=== PATIENT | female | born 1935 | race Caucasian/White ===

== ENCOUNTER 2020-03-16 12:59 | Inpatient (IN) | payer OTHER, MEDICARE ==
[~2020-03-16] VITALS: Ht 160 cm; Wt 64.9 kg
--- NOTE | ~2020-03-16 | EMS ---
[address] [address] EMS Patient Care Report Name: AFSHIN CERVANTES Room #: DEP EN Hicks#: [id number] Admission: 03/16/20 Attend Phys: Discharge: 03/16/20 Date of : 31 Report #: [id number] THIS REPORT FOR: //name// Report Transmitted: 03/16/2020 15:03 EMS Care Summary [facility] MED-ACT Incident [id number] @ 03/16/2020 12:30 Incident Location [address] [place] [address] Patient AFSHIN CERVANTES Female, 84 Years 1935 Patient Address [address] [place] [address] Patient History Dementia,Hypertension (HTN),Hyperlipidemia,Anxiety,Hypotension,Hypothyroidism, Patient Allergies Latex allergy,Penicillin allergy,Morphine,Erythromycin,Sulfa, Patient Medications Fentanyl, Fluticasone, Seroquel, Trazodone, Levothyroxine, Alprazolam, Celexa, Chief Complaint pain to back of head Disposition Transported No Lights/[place] [facility] Reason Falls Transported To [facility] Narrative Dispatched to a C2 fall. On arrival staff reports the following: patient was in her bedroom alone when staff heard a thump. They went in to find patient on the floor crying and bleeding from the back of her head. Staff got patient off [address] [address] EMS Patient Care Report Name: AFSHIN CERVANTES Room #: DEP [facility]#: [id number] Admission: 03/16/20 Attend Phys: Discharge: 03/16/20 Date of : 31 Report #: [id number] the [address] and put pressure on her head wound. Patient has dementia and is always confused. Her confusion is no different than normal. Patient was scheduled to go to [facility] ED this afternoon for labs then move upstairs to the psych. unit for evaluation of anxiety that has been increasing recently. Patient reports the following: she "wamped" her head and now it hurts. She cannot rate the pain. Patient found sitting in a chair with staff at her side. A open, B non labored, C s/r radial. HPI, PE, PMH, V/S. Dress head wound with 4X4 and mekhi. Assist patient to her feet where she is able to walk with her walker to the cot. Secure to the cot. Move to MICU. Transport to [facility]. Monitor V/S. Biocom to [facility]. On arrival at [facility] sheet drag procedure used to move patient to ED bed 7. Report given to ED RN. Patient condition unchanged. Initial Vitals @12:47P: 80,R: 16,BP: 118/72,SpO2: 94, @12:53P: 79,R: 16,BP: 125/70,SpO2: 94, @12:39P: 82,R: 16,BP: 118/73,GCS: 14,SpO2: 98,Revised Trauma: 12, Assessments @12:38MENTAL:Person Oriented,Event Oriented,SKIN:HEENT:Head/Face: Other,Neck/Airway: No Abnormalities,LUNG SOUNDS:General: No Abnormalities,ABDOMEN:General: No Abnormalities,PELVIS//GI:EXTREMITIES:Left Arm: No Abnormalities,Right Arm: No Abnormalities,Left Leg: No Abnormalities,Right Leg: No Abnormalities,PULSE:NEURO: Impression Injury of Head Timeline 12:28,Call Received 12:28,Psap Call 12:30,Dispatched 12:30,En Route 12:33,On Scene 12:35,At Patient 12:39,BP: 118/73 M,PULSE: 82,RR: 16 R,SPO2: 98 Ox,ETCO2: ,BG: ,PAIN: ,GCS: 14, 12:45,Depart Scene 12:47,BP: 118/72 M,PULSE: 80,RR: 16 R,SPO2: 94 Ox,ETCO2: ,BG: ,PAIN: ,GCS: , 12:53,BP: 125/70 M,PULSE: 79,RR: 16 R,SPO2: 94 Ox,ETCO2: ,BG: ,PAIN: ,GCS: , 12:55,At Destination 13:19,Call Closed [facility] [address] [place] [address] EMS Patient Care Report Name: HELENGLENNE Room #: DEP EN Hicks#: [id number] Admission: 03/16/20 Attend Phys: Discharge: 03/16/20 Date of : 31 Report #: [id number] Disclaimer v1.1 Copyright 2020 [employer] This EMS Care Summary contains data elements from the applicable legal record (which may be displayed differently). It is designed to provide pertinent information for the following purposes: continuity of care, clinical quality, and state data reporting. The complete legal record is available to ED staff and administrators of the receiving hospital in [employer] Patient Tracker. All data is provided "as is."
[~2020-03-16 12:59] MED LIST: ACCUPRIL PO; ALEVE220 MG PO; AMLODIPINE PO; ARTHROTEC 50 E1 EACH PO; ASPIRIN EC81 M1 PO; CALTRATE PLUS1 EACH PO; CENTRUM SILVER1 EAC1 PO; FISHOIL PO; GABAPENTIN PO; HCTZ PO; OMEPRAZOLE PO; PRAVASTATIN SOD40 MG PO; PREMARIN0.3 MG PO; SUMYCIN 250250 MG PO; SYNTHROID75 MCG PO; VITAMIN D-32000 UNIT PO; VOLTAREN GEL 1100 G1 TOP
[2020-03-16 13:00] VITALS: BP 121/49
[2020-03-16 13:40] LABS: ABSOLUTE NEUTROPHILS 6.3 thou/uL (1.4-8.2); BASOPHILS 0.7 % (0.0-2.0); EOSINOPHILS 4.8 % (0.0-3.0); HEMATOCRIT 37.9 % (37.0-47.0); HEMOGLOBIN 12.3 gm/dL (12.0-15.0); LYMPHOCYTES 18.8 % (24.0-44.0); MCH 30.6 pg (26.0-34.0); MCHC 32.4 g/dL (28.0-37.0); MCV 94.5 fL (80.0-100.0); MONOCYTES 9.8 % (1.0-8.0); PLATELET COUNT 275 thou/uL (150-400); POLYS 65.9 % (36.0-66.0); RBC 4.01 mil/uL (4.20-5.00); RDW 15.3 % (10.5-14.5); WBC 9.5 thou/uL (4.0-11.0)
[2020-03-16 13:42] LABS: URINE BILIRUBIN NEGATIVE (Negative); URINE BLOOD NEGATIVE (Negative); URINE CLARITY CLEAR; URINE COLOR YELLOW; URINE GLUCOSE-RANDOM* NEGATIVE (Negative); URINE KETONES TRACE (Negative); URINE LEUKOCYTES-REFLEX NEGATIVE (Negative); URINE NITRITE-REFLEX NEGATIVE (Negative); URINE PROTEIN (DIPSTICK) NEGATIVE (Negative); URINE UROBILINOGEN 0.2 E.U./dl (0.2-1.0)
[2020-03-16 13:46] LABS: CALCIUM 9.9 mg/dL (8.5-10.1); CREATININE 1.2 mg/dL (0.6-1.0); POTASSIUM 3.9 mmol/L (3.5-5.1)
[2020-03-16 13:52] LABS: ALBUMIN 3.5 g/dL (3.4-5.0); TOTAL BILIRUBIN 0.3 mg/dL (0.2-1.0); TOTAL PROTEIN 7.2 g/dL (6.4-8.2)
[2020-03-16 15:34] VITALS: BP 124/74
[2020-03-16 16:00] VITALS: BP 124/74
--- NOTE | 2020-03-16 16:00 | NUR ---
PT ARRIVED TO UNIT VIA W/C. PT ORIENTED TO SELF ONLY. PT SITTING ON SIDE OF BED AND CONVERSATION WITH NURSE. PT HAS LACERATION TO RT SIDE OF HEAD WITH JOSE CARLOS FROM FALL EARLIER TODAY. PT DENIES ANY PAIN. PT UP WALKING WITH ASSIST OF NURSE. GETTING ANXIOUS AND NOT WANTING NURSE TO HELP HER WITH WALKING. PT PLACED INTO W/C WITH LAP JANN. PT SITING HAIL JESSICA FULL OF JABIER OVER AND OVER AGAIN. PT DOES ANSWER QUESTIONS FOR ADMIT AND THEN IS GETTING INCREASED ANXIETY. CALLING DR. Brady FOR ORDERS.
--- NOTE | 2020-03-16 16:50 | EKG ---
[facility] [place] [address] [place] [address] ELECTROCARDIOGRAM REPORT Name: AFSHIN CERVANTES Room #: [facility]- ADM IN M.R.#: [id number] Admission: 03/16/20 Attend Phys: Fernandez Spears DO Discharge: Date of : 31 Report #: [id number] THIS REPORT FOR: cc: Fernando Carlos MD, Peter MD Lundgren,Leonid Osorio MD [facility] ~ THIS REPORT FOR: //name// [facility] ED Test Date: 2020-03-16 Test Time: 14:15:51 Pat Name: AFSHIN CERVANTES Department: Room: [facility] Gender: F Facing Slitter: IMAN : 1935 Requested By: Meme Gates Order Number: [id number] MD: Leonid Soriano Measurements Intervals [place] Rate: 70 P: 72 IA: 154 QRS: 47 QRSD: 89 T: 88 QT: 422 QTc: 456 Interpretive Statements Sinus rhythm Nonspecific repol abnormality, diffuse leads Compared to ECG 01/28/2006 13:05:36 No significant change was found Electronically Signed On 03-16-2020 16:49:55 CDT by Leonid Soriano [email or web address] <ELECTRONICALLY SIGNED> By: Leonid Soriano MD, [facility] 03/16/20 1649 1415 1415 Leonid Soriano MD, [facility] /EPI
--- NOTE | 2020-03-16 17:15 | NUR ---
PT RECIEVED GEODON 15MG IM X1 FOR ANXIETY. PT SITTING IN W/C WITH LAP JANN, PT ABLE TO GET OUT OF BELT WHEN WANTING.
[2020-03-16] MEDS ORDERED: CELEXA20 MG PO (17:16)
[2020-03-16] MEDS ORDERED: DEPAKOTE125 MG PO (17:19)
[2020-03-16] MEDS ORDERED: FAMOTIDINE 20 M20 MG PO (17:20)
[2020-03-16] MEDS ORDERED: SEROQUEL 50 MG50 M1 PO (17:22)
[2020-03-16] MEDS ORDERED: CVS SENNA PLUS1 EACH PO (17:23)
[2020-03-16] MEDS ORDERED: DESYREL150 MG PO (17:24)
[2020-03-16] MEDS ORDERED: VITAMIN D3125 MC2 PO (17:26)
[2020-03-16] MEDS ORDERED: DURAGESIC1 EAC2 EPIDURAL (17:28)
[2020-03-16] MEDS ORDERED: FLONASE 0.05%50 MCG NARES (17:29)
[2020-03-16] MEDS ORDERED: VOLTAREN GEL 1100 G1 TOP (17:29)
[2020-03-16] MEDS ORDERED: MIRALAX119 GM PO (17:30)
[2020-03-16] MEDS ORDERED: LIDODERM1 EACH TOP (17:30)
[2020-03-16] MEDS ORDERED: SYSTANE GEL EYE10 ML EA. EYE (17:32)
[2020-03-16] MEDS ORDERED: ALPRAZOLAM XR3 MG PO (17:33)
[2020-03-16] MEDS ORDERED: LORCET 5-325 M1 EACH PO (17:34)
[2020-03-16] MEDS ORDERED: ONDANSETRON HCL4 M2 PO (17:35)
[2020-03-16] MEDS ORDERED: MUCUS RELIEF C200 MG PO (17:37)
[2020-03-16] MEDS ORDERED: ORADENT 0.1% DEN5 GM TOP (17:38)
--- NOTE | 2020-03-16 17:50 | NUR ---
PT STILL SAYING ILA LOPEZ FULL OF JABIER, PT DID HAVE SOME CHIPS AND APPLE JUICE. PT SEEMS A LITTLE BIT CALMER.
[2020-03-16 19:49] VITALS: BP 144/95
--- NOTE | 2020-03-17 03:02 | NUR ---
ASSESSMENT: PT REPEATEDLY RECITES "BREEZYL JESSICA FULL OF JABIER". DOES STOP TO ANSWER QUESTIONS APPROPRIATELY. DOES NOT WANT MUCH HELP FROM NURSE WITH TOILETING AND GETTING IN BED. DENIES PAIN. REMAIN FALL AND INJURY FREE. VSS, AFEBRILE. DID NOT REQUIRE A SECOND DOES OF GEODON. DOES GET A LITTLE ANXIOUS BUT ABLE TO REDIRECT AND TO CALM PT WITHOUT ESCLATION. SLOW PROGRESS WILL CONTINUE TO MONITOR.
[2020-03-17 08:10] VITALS: BP 115/62
--- NOTE | 2020-03-17 08:29 | NUR ---
PT UP IN DINING ROOM THIS AM. PT HARD TO TAKE PILLS THIS AM. THIS MERCHANDISE COMPLAINT ADJUSTER PUT MED IN HER MOUTH AND SHE WOULD TAKE OUT AND DRINK WATER. PT DID HAVE MEDS CRUSHED IN OATMEAL. PT UNABLE TO TAKE CALCIUM TAB. PT TOOK A BIG BITE OF OATMEAL AND THEM TOOK SMALL BITES AFTER THE FIRST BITE. HAD TO COME BACK WITH REST OF MEDICATION IN OATMEAL FOR PT TO TAKE ANOTHER BIGGER BITE. PT WANTING TO GET UP OUT OF CHAIR, HAS LAP JANN ON. ASKED PT WHERE SHE WANTED TO GO. PT DIDN'T KNOW.
--- NOTE | 2020-03-17 11:48 | NUR ---
PT ROLLING SELF AROUND IN W/C. PT STILL SAYIN ILA LOPEZ AND SAYING JOSEFA. PT NOT YELLING AT THIS TIME.
--- NOTE | 2020-03-17 12:07 | NUR ---
PT NEEDING ASSISTANCE WITH FEEDING. PT NOT FEEDING SELF. PT ALLOWS TO BE FED. PT DIDN'T EAT VERY MUCH FOR BREAKFAST. A FEW BITES OF OATMEAL AND SCRAMBLED EGGS.
--- NOTE | 2020-03-17 19:00 | NUR ---
PT HAS BEEN HAVING A GOOD DAY TODAY. PT DOES SITE ROSERY AND SAYS JOSEFA WITHOUT THE ANXIETY.
--- NOTE | 2020-03-18 04:07 | NUR ---
PATIENT ASSESSED AND IS ALERT X2. SKIN WARM AND DRY. IS VERY ANXIOUS AT TIMES, REPEATS "ILA LOPEZ FULL OF JABIER" TAKEN ALL MEDS WELL. PLACED TO BED AND HAS BEEN SLEEPING GOOD. NO ANXIETY NOTED AFTER HS MEDS. IS IN A W/C WITH LAP JANN ON. WEARS BREIF AND IS INCONT AT TIMES. MEDS WERE CRUSHED AND PLACED IN APPLESAUSE. ALL MEDS WERE SWITCHED SO SHE HAS A EASIER TIME 9IN SWOLLOWING. BUT PATIENT DOES NOT KNOW. IS A DNR. AND A FALL RISK. NO SI/HI/AVH NOTED THIS SHIFT. ALLERIIC TO ALOT OF MEDS. CONT PLAN OF CARE. REMIANS SLEEPING.
[2020-03-18 07:00] VITALS: BP 143/73
[2020-03-18 11:23] VITALS: BP 143/73
--- NOTE | 2020-03-18 11:27 | NUR ---
ASSUMED CARE OF PT AT 0700. PT ALERT AND ORIENTED TIMES TWO. VSS, PT DENIES PAIN/SOA. ALSO DENIES SI/HI/AH/VH. PT UP IN DINNING ROOM. PT HAS VERY POOR APETITE. PT INTERACTS WITH STAFF AND PEERS BUT RAMBLES. WILLCONTINUE TO MONITOR.
[2020-03-18 20:18] VITALS: BP 108/86
[2020-03-18 21:15] VITALS: BP 108/86
--- NOTE | 2020-03-19 01:19 | NUR ---
PATIENT SAT AT DINING ROOM TABLE IN HER WC WITH CHAIR ALARM ON AND BRAKES ON WHEN I CAME ON DUTY AT 1900. SHE WAS CONVERSING WITH A MALE PATIENT TO WHOM SHE THINKS IS HER . BOTH WERE TALKING AND PLEASANTLY CONFUSED. PATIENT TOOK HER HS MEDS CRUSHED IN PUDDING AT HS. SHE DID HAVE HS SNACK. PATIENT TAKEN TO THE TOILET BEFORE BED. TYLENOL 650MG AND ZOFRAN 4MG CRUSHED IN PUDDING GIVEN AFTER PT'S ROOMMATE AWAKENED BY PATIENT TALKING NONSENSE. PATIENT BACK TO SLEEP. PATIENT IS DELUSIONAL AND SEE'S OTHERS PEOPLE IN HER PAST. SHE IS PLEASANTLY CONFUSED. SHE HAS NOT BEEN LOUD OR YELLING THIS EVENING. SHE IS ABLE TO LET US KNOW AT TIMES WHEN SHE NEEDS TO USE THE BATHROOM. BED IN LOW POSITION AND BED ALARM IS ON. CONTINUING TO MONITOR THRU ROUTINE ROUNDING TO ASSESS STATUS AND SAFETY OF PATIENT.
[2020-03-19 07:13] LABS: ALBUMIN 3.1 g/dL (3.4-5.0); CALCIUM 9.8 mg/dL (8.5-10.1); CREATININE 1.1 mg/dL (0.6-1.0); PHOSPHORUS 3.7 mg/dL (2.5-4.9); POTASSIUM 3.8 mmol/L (3.5-5.1)
[2020-03-19 08:40] VITALS: BP 121/72
[2020-03-19 08:47] VITALS: BP 121/72
--- NOTE | 2020-03-19 09:11 | NUR ---
PT FINISHED BREAKFAST AND JOINING GROUP. PT IN W/C, PT X1 ASSIST WITH BATHROOM. PT PLEASANT THIS AM. PT TAKES MEDS CRUSHED IN YOGART OR PUDDING. PT TOOK MEDS FOR THIS STEEL TESTER BETTER, OPENEND MOUTH FOR MEDS. PT ORIENTED TO SELF. PT CAN WALK, GETS TIRED EASILY AND STAGGERS.
--- NOTE | 2020-03-19 13:25 | NUR ---
ABDI recieved a phone call from Dionne Joyner, , who is Pt's DPOA. SW provided the phone number of the ongoing ABDI Boone to Ms. Joyner. ABDI gave an update on the Pt. Ms. Joyner did not have any further questions or concerns at this time.
--- NOTE | 2020-03-19 13:26 | NUR ---
ABDI spoke with Kiana Villalta, , concerning the Pt. Sw provided Kiana with the ongoing SW, Kya Boone, contact information. Sw provided Kiana with and update on the Pt.
--- NOTE | 2020-03-19 14:39 | NUR ---
PT IN W/C PROPELLNG SELF AROUND, PT CALLING FOR JOSEFA AND TAWANA. PT WANTING TO CUT PART OF HER GOWN OFF.
--- NOTE | 2020-03-19 14:46 | NUR ---
ABDI spoke with Kiana and received her fax number of [phone]. ABDI team will continue to follow pt during her stay on this unit.
[2020-03-19 19:38] VITALS: BP 150/60
[2020-03-19 21:10] VITALS: BP 150/60
--- NOTE | 2020-03-20 02:16 | NUR ---
PATIENT HAS BEEN MORE ACTIVE TONIGHT. SHE HAS BEEN ENERGETIC AND WHEELING HERSELF AROUND THE UNIT IN HER WC AND ENTERING SOME PT ROOMS AT TIMES. SHE CONTINUES TO BE CONFUSED AND DELUSIONAL. SHE KEEPS ASKING ABOUT "JOSEFA" HER AND SHE TALKS ABOUT HIM. SHE SOMETIMES SPEAKS TO ANOTHER MALE PATIENT IF HE IS JOSEFA. PATIENT WAS TAKING OFF HER GOWN AT ONE TIME IN THE DINING ROOM. 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 PATIENT HAD HS SNACK. SHE TOOK HER MEDS CRUSHED IN PUDDING. PT WAS GIVEN TYLENOL 650MG PO AT HS TO HELP HER REST AND CALM ANY GENERALIZED ACHES OR PAINS. PATIENT A/0 X 1. SHE IS EASILY REDIRECTED AND VERY PLEASANT AND SMILING ALOT. SEROQUEL WAS INCREASED TO 100MG. PATIENT IS ABLE TO ASSIST WITH TRANSFERS FROM TO BED. BED IN LOW POSITION AND BED ALARM IS ON. WILL CONTINUE TO MONITOR.
[2020-03-20 07:10] VITALS: BP 100/52
[2020-03-20 08:00] VITALS: BP 100/52
--- NOTE | 2020-03-20 08:17 | NUR ---
PT TOOK MEDS THIS AM CRUSHED, PT CONFUSED AND ORIENTED TO SELF. PT LOOKING FOR JOSEFA OR TAWANA. PT ABLE TO BEAR WT ON FEET AND WALK A FEW FEET, THEN GETS TIRED AND NEEDS TO SIT. PT NEEDS ASSITANCE WITH FEEDING ALSO.
--- NOTE | 2020-03-20 17:23 | NUR ---
PT SEEMS MORE CONFUSED SINCE SEROQUEL ADM IN AFTERNOON. PT PULLING AT CLOTHES AND VERY ANXIOUS WANTING TO GET OUT OF HERE. PT SITEING ILA LOPEZ FULL OF JABIER. PT TAKEN TO BATHROOM. PT SEEMS A LITTLE MORE RELAXED. PT COMPLAINING OF FEELING COLD. PT DIDN'T WANT TO EAT DINNER.
[2020-03-20 18:50] VITALS: BP 128/70
--- NOTE | 2020-03-20 23:46 | NUR ---
Assumed pt's care this pm shift. Pt was in the dayroom om w/c at time of assessment. Alert and oriented to self. Forgetful. Confused. Pt was calm and pleasant with assessment. Denies SI/HI, anxiety and/or depression. Pt took meds crushed in pudding, except for enteric coated aspirin given whole. Pt currently in bed sleeping. Fall precaution in place. Will continue to monitor.
[2020-03-21 07:25] VITALS: BP 132/75
--- NOTE | 2020-03-21 11:54 | NUR ---
RESTLESS THIS AM ATTEMPTING TO GET UP ON OWN,YELLING OUT HELP HELP OR SAYING THE HAIL JESSICA LOUDLY IN DAYROOM. WILL CALM WITH SUPPORT,REASSURANCE FROM NURSING STAFF BUT IMMEDIATLY BEGINS TO YELL OUT AGAIN WHEN STAFF WALKS AWAY. ORIENTED TO NAME ONLY. REQUIRES ASSIST WITH ALL ADLS.
--- NOTE | 2020-03-21 14:26 | NUR ---
ANXIOUS -TEARFUL STATING "I'M SO SCARED-I'M SO NERVOUS" "PLEASE TAKE ME AWAY-PLEASE TAKE ME AWAY" SPEECH LOUD-CONVERSATION RAMBLING /FRAGMENTED-WITH NOTED EXPRESSIVE APHASIA"PLEASE DON'T MAKE ME GO TO THE [employer]" TYLENOL 650MG PO PRN FOR REPORTED BACK PAIN-WILL CONTINUE TO MONITOR
[2020-03-21 19:28] VITALS: BP 143/64
[2020-03-21 21:37] VITALS: BP 143/64
--- NOTE | 2020-03-21 22:53 | NUR ---
PATIENT WAS SITTING IN A RECLINER OUTSIDE NURSE STATION, HOLLERING OUT AND TRYING TO GET OUT OF HER CHAIR WHEN THIS NURSE CAME ON AT 1900. WAS TOLD IN REPORT SHE WAS GIVEN HALDOL AND ATIVAN AT 1730 A ONETIME ORDER. SPOKE WITH PATIENT ON ASSESSMENT AND SHE STATES HER BACK AND NECK ARE HURTING. TYLENOL 650MG WAS GIVEN WITH HER HS MEDS AT 1999. MEDS WERE CRUSHED IN PUDDING AND PATIENT ATE ALL THE PUDDING. PATIENT WAS ASSISTED TO THE BATHROOM AND CLEANED AND INTO BED. PATIENT HAS BEEN SLEEPING SOUNDLY SINCE 2029. NO SI/HI. PATIENT DOES CALL OUT FOR TAWANA AND JOSEFA AT TIMES AND TALKS TO OTHERS IF THAT IS THEM. ROUTINE ROUNDING TO ASSESS SAFETY AND STATUS OF PATIENT. BED IN LOW POSITION AND BED ALARM IS ON.
--- NOTE | 2020-03-22 05:39 | NUR ---
PATIENT HAS SLEPT ALL NIGHT. PATIENT WITH EVEN AND UNLABORED RESPIRATIONS. BED ALARM IS ON AND BED IN LOW POSITION. CONTINUING TO MONITOR.
[2020-03-22 08:53] VITALS: BP 135/67
--- NOTE | 2020-03-22 11:52 | NUR ---
PT CARE ASSUMED AT 0700. A&Ox1. PT SITTING UP IN THE RECLINER IN THE DAY ROOM BECOMING RESTLESS AND CONTINUING TO PRAY THE HAIL JESSICA. PT STATED HER HIP WERE HURTING HER, TREATED WITH TYLENOL, WITH PAIN REDUCED TO A 2 FROM A 5. VITALS STABLE. DR. CHILEL HAS REDUCED SEROQUIL FROM 100MG TO 75MG. DR. CHILEL ALSO WISHES TO HAVE THE LAP JANN REMOVED AND SWITCHED OVER TO A CHAIR ALARM. ORDER COMPLEETED. FALL PROTOCOL IN PLACE. CALL LIGHT IN PLACE. WILL CONTINUE TO MONITOR.
--- NOTE | 2020-03-22 13:40 | NUR ---
ABDI faxed updates for pt to Traci P[facility]. ABDI team will continue to follow pt during her stay on this unit.
--- NOTE | 2020-03-22 15:17 | NUR ---
RT Progress Note- Samantha's ability to maintain focus has hindered her participation in recreation groups. She easily loses attention to task and begins looking for "Edgardo" her . She can be difficult to redirect back to task but is allowed to wander out of group when needed and can return for a short time. She has participated well in some exercise groups and enjoys when music is played. She also participated well in 1;1 ball toss which allowed for her to tire enough for a nap.
[2020-03-22 19:31] VITALS: BP 163/90
--- NOTE | 2020-03-23 05:29 | NUR ---
Assumed care of pt @ 1900. Pt calm et cooperative most of shift but became agitated later in the shift. Pt was given Geodon 10mg IM for agitation in very early am. Took medications crushed in pudding without difficulty at HS. Ambulates the halls with slightly unsteady gait. VSWNL. Health assessment with no abnormalities noted at present time. Unable to assess SI/HI due to cognitive deficit but pt does not demonstrate any signs or symptoms of emotional distress at present time. Currently resting in annamarie-chair in dayroom with eyes closed. Will continue to monitor per protocol.
--- NOTE | 2020-03-23 15:03 | NUR ---
PATIENT CARE ASSUMED AT 0700 - SLEEPING IN JERILYN CHAIR IN DINING LEE. PATIENT SEDATED FROM IM PREVIOUS NIGHT GIVEN OF GEOKASSI. STAFF ABLE TO AROUSE FOR BREAKFAST - MEDICATIONS DISPENSED CRUSHED IN APPLESAUCE - TOLERATED WELL. PATIENT EXTREMELY CONFUSED - TALKING TO UNSEEN PEOPLE- IN CONSTANT MOVEMENT. DIFFICULT TO REDIRECT. AMBULATED WITH PT FOR SHORT TIME. CONSTANTLY DISASSEMBLING LAP JANN PLACE ON HER TO PREVENT FALLING. CONVERSATION IRRATIONAL - THOUGHT PROCESSES SCRAMBLED. TALKING NON STOP - CALLING OUT FOR PEOPLE SHE IS ACQUAINTED WITH FROM HER PAST. VERY RESTLESS - APPETITE POOR NEEDS ENCOURAGEMENT TO EAT AND COMPLETE HER MEALS. HAD TO BE FED.
[2020-03-23 19:09] VITALS: BP 113/66
[2020-03-23 19:12] VITALS: BP 143/84
--- NOTE | 2020-03-24 05:05 | NUR ---
Assumed care of pt @ 1900. Pt calm et cooperative at beginning of shift et then proceeded her fixation on "mariusz Paz, mother of God" repetitive vocalization. Pt started to become increasingly agitated. Physician consumer credit counselor was notified et ordered Geodon 10mg IM X1. This was administered to L deltoid without difficulty. No signs or symptoms of adverse reaction were noted after 15 minute monitoring. Medication was effective after a length of time. Took medications crushed in pudding without difficulty. Ambulates with assistance of w/c. ELENAKATJA. Health assessment with no abnormalities noted at present time. Unable to assess SI/HI due to cognitive deficits but pt does not demonstrate any signs or symptoms of emotional distess at present time. Currently resting in bed with eyes closed. Will continue to monitor per protocol.
[2020-03-24 07:22] VITALS: BP 153/86
--- NOTE | 2020-03-24 14:07 | NUR ---
PATIENT CARE ASSUMED AT 0700. PATIENT HAS BEEN IN JERILYN CHAIR IN DINING LEE. ALERT TO SELF ONLY. RESTLESS - MEDICATIONS GIVEN CRUSHED IN APLESAUCE AND TOLERATED WELL. PATIENT POOR EATER AND DRINKER - INTAKE OF BOTH LIMITED - THOUGH STAFF ALWAYS ENCOURAGING FLUIDS - PATIENT SLEPT MOST OF DAY - STAFF HAD UP WALKING WITH GAIT BELT TO EASE RESTLESSNESS. PATIENT HAD BOWEL MOVEMENT WHEN TAKEN TO BATHROOM. NO AGGRESSION OR AGITATION NOTED.
[2020-03-24 16:11] LABS: CALCIUM 9.9 mg/dL (8.5-10.1); CREATININE 0.9 mg/dL (0.6-1.0); POTASSIUM 3.7 mmol/L (3.5-5.1)
[2020-03-24 19:45] VITALS: BP 151/81
--- NOTE | 2020-03-25 03:46 | NUR ---
Assumed care of pt @ 1900. Pt calm et cooperative most of the shift. Took medications crushed in sweetened applesauce without difficulty et ate the whole container of applesauce. Ambulates with assistance of annamarie-chair. VSWNL. Health assessment with no abnormalities noted at present time. Unable to assess SI/HI due to cognitive deficit but does not demonstrate any signs or symptoms of emotional distress at present time. Pt had small episode of acceleration in agitation, but was able to calm down. Currently resting in bed with eyes closed. Will continue to monitor per protocol.
[2020-03-25 07:29] VITALS: BP 128/60
--- NOTE | 2020-03-25 10:12 | NUR ---
Assumed care of patient at 0700. Up in chair in day room. Pleasant, happily confused. Took all of medication crushed in applesauce. Denies any complaints. Verbose. Abdomen soft, bowel sounds present. Difficult to fully assess lung sounds. No cough. vital signs WNL. No resistive behavior or agitation noted. Cooperative with care. Bruise observed left arm. Napping intermittently.
--- NOTE | 2020-03-25 10:31 | NUR ---
[facility]
--- NOTE | 2020-03-25 13:07 | NUR ---
SHOWER GIVEN, HAIR WASHED, BED LINEN CHANGED. PT. COOPERATIVE WITH THE PROCESS.
[2020-03-25 19:13] VITALS: BP 149/79
--- NOTE | 2020-03-26 02:18 | NUR ---
ASSUMED CRAE OF PT , PT VERY PLEASANT AND ANSWERING [place]ST[place] WITHOUT DIFF. APPEARS WELL GROOMED, STATES SHE BETTER TODAY THAN SHE HAD IN LONG WHILE. PT STATES SHE IS READY TO GO HOME SOON. MEDICARION TAKEN THEN PT SLEEP FOR 2 HOURS AND WAS AWAKE IN DAYROOM DUE TO ROOMAMTE SNORING. WILL TO MOVE PT OR WAIT UNTIL AM AND GET SLEEPING PILL FRO THE FLOOLOWING NIGHT.
[2020-03-26 07:13] VITALS: BP 152/79
--- NOTE | 2020-03-26 17:14 | NUR ---
ASSUMED PATIENT CARE AT 0700. ALERT CONFUSED. VERY CALM. SLOWLY TOWARDS POC GOALS.
[2020-03-26 19:57] VITALS: BP 141/66
[2020-03-26 21:00] VITALS: BP 141/66
--- NOTE | 2020-03-27 00:33 | NUR ---
PATIENT SAT UP IN RECLINER IN DAYROOM. PATIENT IS A/0X1. SHE TALKS TO OTHER MALE PATIENTS THINKING THEY ARE HER , JOSEFA. PATIENT IS A FALL RISK AND SAT IN A LOCKED RECLINER ON A CHAIR ALARM. PATIENT TOOK HER HS MEDS CRUSHED IN PUDDING. PATIENT DENIES PAIN TONIGHT BUT STATES SHE IS TIRED. PATIENT IN BED AT THIS TIME. BED IN LOW POSITION AND BED ALARM IS ON. SIDERAILS UP X 3 FOR SAFETY. PATIENT HAS BEEN CALM AND SMILING TONIGHT. NO SIGNS OF SI/HI/AVH. JUST DELUSIONAL. ROUTINE ROUNDING TO ASSESS SAFETY AND STATUS OF PATIENT.
[2020-03-27 07:28] VITALS: BP 150/75
--- NOTE | 2020-03-27 08:26 | NUR ---
PT SITTING IN DINING ROOM THIS AM IN KULWANT CHAIR. PT DENIES ANY PAIN. PT LE CAN BECOME EDEMATOUS WITH LEGS DEPENDANT, FOOT REST RAISED FOR COMFORT. PT VERY POLITE AND ACCEPTANCE OF FOOD. PT DOESN'T EAT VERY MUCH. NEED TO ENCOURAGE FLUIDS AND FOOD. PT SAYS ILA LOPEZ FULL OF JABIER AT TIMES, NOT YELLING. PT NEEDS ASSITANCE WITH WALKING DUE TO GET TIRED FAST. PT ABLE TO WALK AROUND NURSES DESK, THEN GETS TIRED. PT SOCIAL WITH STAFF.
--- NOTE | 2020-03-27 08:26 | NUR ---
PT SITTING IN DINING ROOM WATCHING TV. PT TOOK MEDS WITHOUT ANY ISSUES. PT DID DROP A PILL AND WANTED TO TAKE IT, 5 SEC RULE, I DECLINED AND GOT ANOTHER PILL FOR HER. PT SOCIAL AND NOT ASKING ABOUT GOING HOME OR WANTING TO LEAVE. PT LUNGS CLEAR. PT UP AD CESIA.
[2020-03-27 08:30] VITALS: BP 150/75
--- NOTE | 2020-03-27 12:17 | NUR ---
PRN ABDI left a msg for this SW that pt is ready for d/c on Thu. ABDI confirmed this with Dr. Spears. ABDI contacted Kiana who agreed to a 1300 d/c time on 03/28 via [employer]. ABDI contacted [employer] and arranged transportation for 03/28 1pm. Trip # [id number]. SW team will continue to follow pt during her stay on this unit.
--- NOTE | 2020-03-27 17:22 | NUR ---
PT HAS HAD A GOOD DAY. PT NEEDS TO BE FEED WITH MEALS AND ENCOURAGED TO DRINK. WHEN PT STATED SHE NEEDS TO GO TO BATHROOM, PT IS WALKED WITH X1-2 ASSIST TO BATHROOM. PT TOLERATES ACTIVITY WELL.
--- NOTE | 2020-03-27 18:30 | NUR ---
PT STATED SHE WAS HAVING SOME PAIN. PT RECIEVED TYLENOL 325MG 2 TABS PO FOR PAIN.
[2020-03-27 19:34] VITALS: BP 113/55
[2020-03-27 21:00] VITALS: BP 113/55
--- NOTE | 2020-03-27 23:13 | NUR ---
PATIENT SAT UP IN A RECLINER AT A TABLE AND HAS BEEN VERY TALKATIVE ALL NIGHT. SHE HAS SQUIRMED IN HER RECLINER TO TRY AND GET OUT OF HER LAPBUDDY. REPOSITIONED PATIENT AND FINALLY REMOVED LAP JANN AND PATIENT STAYED IN CHAIR BUT KEPT SLIDING HERSELF DOWN. SHE HAS DENIED PAIN TONIGHT. THE NEW FEMALE PATIENT DID SIT AND LISTEN TO PATIENT TALK ALL NIGHT AND THEY CONVERSED AT TIMES. PATIENT WAS TRYING TO CALL OUT TO HER FRIEND TAWANA AT TIMES AND LOOKING FOR HER. PATIENT TOOK HER HS MEDS CRUSHED IN PUDDING. SHE HAD ICECREAM FOR HS SNACK. SHE DOES NOT APPEAR TO SI/HI BUT IS DELUSIONAL. SHE HAS BEEN HAPPY AND ALMOST MANIC THE EVENING PROGRESSED. HOWEVER, SHE DID CALM DOWN ONCE TAKEN TO HER ROOM AND TOILETED AND PUT TO BED. SHE IS SLEEPING AT THIS TIME. BED IS IN LOW POSITION AND BED ALARM IS ON. WHEN UP PATIENT HAS BEEN IN A LOCKED RECLINER SITTING ON A CHAIR ALARM AND LAPBUDDY FASTENED IN THE FRONT PRN. PT HAS BEEN COOPERATIVE AND REDIRECTABLE. VERY SHORT ATTENTION SPAN. FLIGHT OF IDEAS. ROUTINE ROUNDING TO ASSESS SAFETY AND STATUS OF PATIENT.
[2020-03-28 07:29] VITALS: BP 142/80
--- NOTE | 2020-03-28 10:22 | NUR ---
Assumed care of patient at 0700. Up in gerichair in dayroom with lapbuddy. pleasantly confused. Cooperative. Talks constantly, gibberish, asking if she can go under the floor. Bowel sounds present, lungs sounds clear, upper lobes. Is not participating in groups. Monitored q 12 minutes. medication adherent. Takes medication crushed in applesauce.
[2020-03-28] MEDS ORDERED: DEPAKOTE SPRIN125 MG PO (12:07)
[2020-03-28] MEDS ORDERED: SEROQUEL 25 MG25 M1 PO (12:12)
[2020-03-28] MEDS ORDERED: SEROQUEL 50 MG50 MG PO (12:13)
[2020-03-28] MEDS ORDERED: SENNA-TIME S T1 EACH PO (12:14)
[2020-03-28] MEDS ORDERED: PEPCID20 MG PO (12:15)
--- NOTE | 2020-03-28 12:50 | NUR ---
ABDI D/C NOTE ABDI faxed d/c docs to Lilian Paz. SW will file docs and confirmation pg in pt's hospital file. No other needs for SW team to address at this time.
--- NOTE | 2020-03-29 21:30 | D ---
[facility] [place] [address] DISCHARGE SUMMARY Name: AFSHIN CERVANTES Room #: 519B-B DIS IN M.R.#: [id number] Admission: 03/16/20 Attend Phys: Fernandez Spears DO Discharge: 03/28/20 Date of : 31 Report #: [id number] THIS REPORT FOR: cc: Fernando Carlos MD,Fernando Spears,Fernandez Osorio DO ~ THIS REPORT FOR: //name// CC: Fernandez Carlos DATE OF SERVICE: 03/28/2020 INPATIENT PSYCHIATRIC DISCHARGE SUMMARY ATTENDING PHYSICIAN: Fernandez Spears DO [employer] DIRECTOR AT THE TIME OF DISCHARGE: Shan Brock DO. DISCHARGE DIAGNOSIS: Major neurocognitive disorder, likely unspecified etiology. Medical comorbidities include mild dehydration and hypothyroidism. DISCHARGE MEDICATIONS: Depakote Sprinkles 500 mg p.o. b.i.d. for mood stabilization; Seroquel 75 mg p.o. at 0900, 1500, 2100 for psychosis, Seroquel 50 mg q. 4 p.r.n. for anxiety and agitation, senna docusate 2 tabs p.o. b.i.d. for bowel motility, famotidine 20 mg p.o. daily for GERD, levothyroxine 75 mcg oral daily, vitamin D supplementation 2000 International Units p.o. daily, aspirin 81 mg p.o. daily LABORATORY DATA: Most recent labs, sodium 140, potassium 3.7, chloride 104, bicarbonate 27, anion gap 9, BUN 18, creatinine 0.9, estimated GFR 59, glucose 110, calcium 9.9 on 03/24/2020. Hematology, most recently on , white count 9.5, H and H 12.3 and 37.9, platelet count 275. Urinalysis on 03/16/2020 was negative except for trace ketones. Toxicology most recent Depakote level is 98 on 03/27/2020. COVID-19 serology from 03/26/2020 for discharge was negative. REASON FOR ADMISSION: Back on 03/16/2020 to so an 84-year-old female brought to the ED. Apparently, there was a fall, complained of a head injury. Patient had been increasingly agitated. She was beifly in prison prior to admission. . Unfortunately, her spouse on 03/01/2020 who was her caregiver. HOSPITAL COURSE: The patient was admitted to [facility] Unit. [address] [address] DISCHARGE SUMMARY Name: AFSHIN CERVANTES Room #: 519B-B [facility] IN M.R.#: [id number] Admission: 03/16/20 Attend Phys: Fernandez Spears, Discharge: 03/28/20 Date of : 31 Report #: [id number] Regarding the Depakote was started, titrated to effect, Seroquel was I believe high of 100 mg 3 times a day, but reduced back to 75 due to akathisia. Once the patient got more used to her dose, she did just fine with 75 mg stength. Her family is aware of this neurodegenerative disorder and low progressive cognitive decline with suicidal or homicidal ideations. We had several family conferences with her daughter. PHYSICAL EXAMINATION: VITAL SIGNS: On the day of discharge, temperature 36.3, pulse 52, respirations 12, BP 142/80, and O2 sat 98%. GENERAL: She did not appear in distress. MUSCULOSKELETAL: Seated in a Eunice chair, lap misti verbally in place. MENTAL STATUS EXAMINATION: This is a well-developed, ill-appearing female appearing nearly stated age. Attention limited. Concentration limited. Speech is normal rate. Thought process is nonlinear, nonsensical at times. No psychomotor agitation. Mood and affect congruent, bright, euthymic. No auditory, visual, or tactile hallucinations. Memory not formally tested. Insight limited. Judgment impaired. Fund of knowledge below average. PROGNOSIS: For this patient is guarded given her age, having progressive neurodegenerative disorder. <ELECTRONICALLY SIGNED> By: Fernandez Spears DO 03/29/200 [id number] Fernandez Spears DO /nt
== END 2020-03-28 13:06 | DRG 884 ==
LOC: ER 12:59 → SBH 15:34 → EROBS 16:14 → SBH 16:15
PROVIDERS: Hospitalist; Nurse Practitioner; ADMIT Psychiatry & Neurology Psychiatry; ATTEND Psychiatry & Neurology Psychiatry
DX: F01.51 Vascular dementia, unspecified severity, with behavioral disturbance (principal); N17.9 Acute kidney failure, unspecified; R45.851 Suicidal ideations; I10 Essential (primary) hypertension; E03.9 Hypothyroidism, unspecified; E86.0 Dehydration; F41.9 Anxiety disorder, unspecified; K21.9 Gastro-esophageal reflux disease without esophagitis; G25.71 Drug induced akathisia; E55.9 Vitamin D deficiency, unspecified; R45.850 Homicidal ideations; Z20.828 Contact with and (suspected) exposure to other viral communicable diseases; Z79.82 Long term (current) use of aspirin; Z90.710 Acquired absence of both cervix and uterus; Z79.899 Other long term (current) drug therapy; Z88.1 Allergy status to other antibiotic agents; Z91.040 Latex allergy status; Z88.0 Allergy status to penicillin; Z88.2 Allergy status to sulfonamides; Z88.8 Allergy status to other drugs, medicaments and biological substances; Z91.048 Other nonmedicinal substance allergy status
CPT/HCPCS: 10880